=== PATIENT | male | born 1965 | race Hispanic/Latino ===

== ENCOUNTER 2022-03-24 21:28 | Emergency (ER) | payer OTHER ==
[2022-03-24] MEDS ORDERED: Morphine 4 MG/ML VIAL ONE (22:18)
[2022-03-24] MEDS ORDERED: Ondansetron PF 4 MG/2 ML Vial ONE (22:18)
[2022-03-24] MEDS ORDERED: Cefepime 2 GM VIAL ONE (22:19)
[2022-03-24 22:47] LABS: SARS-CoV-2 NAA Rapid Test Not Detected (NotDetected)
[2022-03-24 22:48] LABS: Hemoglobin 11.6 g/dL (13.5-17.5); MDiff Complete? YES; Mean Corpuscular HGB CONC 34.1 g/dL (32.0-36.0); Mean Corpuscular Hemoglobin 28.5 pg (27.0-33.0); Mean Corpuscular Volume 83.5 fl (81.2-95.1); Mean Platelet Volume 9.7 fl (7.4-10.4); Platelet Count 403 10x3/uL (150-450); Platelet Morphology Comment Appears Adequate; RBC Distribution Width 13.2 % (11.5-14.5); Red Blood Cell (RBC) Count 4.07 10x6/uL (4.32-5.72); White Blood Cell (WBC) Count 12.7 10x3/uL (3.5-10.5)
[2022-03-24 23:38] LABS: Band 1 % (5-11); Eosinophils 1 % (0-10); Lymphocytes 28 % (21-51); Metamyelocyte 2 % (0-0); Monocytes 10 % (0-10); Neutrophil 53 % (42-75); Reactive Lymphocytes 5 % (0-10)
[2022-03-24 23:51] LABS: ALT (SGPT) 18 U/L (8-55); AST (SGOT) 12 U/L (5-34); Albumin 3.3 g/dL (3.5-5.0); Alkaline Phosphatase 74 U/L (40-110); Anion Gap 14 mmol/L (10-20); BUN (Urea Nitrogen) 24 mg/dL (8.4-25.7); Bilirubin, Total 0.3 mg/dL (0.2-1.2); Calc. Creatinine Clearance 0 mL/min (70-130); Calcium 8.9 mg/dL (7.8-10.44); Carbon Dioxide 22 mmol/L (22-29); Chloride 102 mmol/L (98-107); Estimated GFR 99; Globulin 4.5 g/dL (2.4-3.5); Glucose 324 mg/dL (70-105); Potassium 3.9 mmol/L (3.5-5.1); Protein, Total 7.8 g/dL (6.0-8.3); Sodium 134 mmol/L (136-145)
[2022-03-25] MEDS ORDERED: Morphine 4 MG/ML VIAL ONE (01:29)
== END 2022-03-25 03:34 | disposition short-term general hospital (02) ==
LOC: CSHERS 21:28 → EEVIPCON 21:28 → CSHERS 03-25 03:34
DX: A41.9 Sepsis, unspecified organism (principal); M86.9 Osteomyelitis, unspecified; E78.5 Hyperlipidemia, unspecified; E10.9 Type 1 diabetes mellitus without complications; I10 Essential (primary) hypertension; Z79.899 Other long term (current) drug therapy; Z79.4 Long term (current) use of insulin
CPT/HCPCS: 36415; 36416; 80053; 83605; 85025; 87040; 87070; 87077; 87186; 87205; 93005; 96365; 96366; 96367; 96375; 96376; J0692; J2270; J2405; J3370; U0002

== ENCOUNTER 2023-05-04 10:53 | Emergency (ER) | payer OTHER ==
[2023-05-04 12:35] LABS: #Basophils 0.1 10x3/uL (0.0-0.2); #Eosinphils 0.2 10x3/uL (0.0-0.5); #Monocytes 1.1 10x3/uL (0.0-1.1); #Neutrophils 3.6 10x3/uL (1.5-8.4); %Basophils 0.9 % (0.0-2.0); %Eosinophils 3.1 % (0.0-6.0); %Lymphocytes 30.1 % (18.0-47.0); %Monocytes 14.6 % (0.0-10.0); %Neutrophils 47.6 % (40.0-75.0); Hematocrit 38.7 % (38.8-50.0); Hemoglobin 12.5 g/dL (13.5-17.5); Mean Corpuscular HGB CONC 32.3 g/dL (32.0-36.0); Mean Corpuscular Hemoglobin 26.8 pg (27.0-33.0); Platelet Count 368 10x3/uL (150-450); Red Blood Cell (RBC) Count 4.66 10x6/uL (4.32-5.72); White Blood Cell (WBC) Count 7.5 10x3/uL (3.5-10.5)
[2023-05-04] MEDS ORDERED: Ampicillin/Sulbactam 3 GM in Sodium Chloride 0.9% 100 ML IVPB SCH ×2 (12:45→19:45)
[2023-05-04] MEDS ORDERED: VANCOMYCIN 2 GRAM/400 ML BAG 2 GM in Premix Bag 1 BAG IVPB SCH (12:45)
[2023-05-04 12:50] LABS: ALT (SGPT) 30 U/L (8-55); AST (SGOT) 25 U/L (5-34); Albumin 3.6 g/dL (3.5-5.0); Alkaline Phosphatase 110 U/L (40-110); Anion Gap 14 mmol/L (10-20); BUN (Urea Nitrogen) 10 mg/dL (8.4-25.7); Bilirubin, Total 0.5 mg/dL (0.2-1.2); Calc. Creatinine Clearance 0 mL/min (70-130); Calcium 8.8 mg/dL (7.8-10.44); Carbon Dioxide 24 mmol/L (22-29); Chloride 104 mmol/L (98-107); Estimated GFR 102; Globulin 3.8 g/dL (2.4-3.5); Glucose 93 mg/dL (70-105); Potassium 4.3 mmol/L (3.5-5.1); Protein, Total 7.4 g/dL (6.0-8.3); Sodium 138 mmol/L (136-145)
[2023-05-05] MEDS ORDERED: Ampicillin/Sulbactam 3 GM in Sodium Chloride 0.9% 100 ML IVPB SCH (01:00)
[2023-05-05] MEDS ORDERED: Vancomycin 1 GM VIAL ONE (09:48)
[2023-05-05] MEDS ORDERED: metFORMIN 500 MG TAB ONE (10:59)
[2023-05-05] MEDS ORDERED: Aspirin 81 mg Enteric Coated Tablet ONE (10:59)
[2023-05-05] MEDS ORDERED: Lisinopril 20 MG TAB PO SCH (11:00)
[2023-05-05] MEDS ORDERED: Insulin NPH Human Isophane 100 UNITS/ML (10 ML VIAL) SC SCH (12:00)
[2023-05-05] MEDS ORDERED: Piperacillin/Tazobactam 4.5 GM VIAL ONE (12:31)
[2023-05-06] MEDS ORDERED: Lisinopril 20 MG TAB PO SCH (10:15)
== END 2023-05-06 20:24 | disposition short-term general hospital (02) ==
LOC: CSHERS 10:53 → EEVIPCON 10:53 → CSHERS 05-06 20:24
DX: E11.69 Type 2 diabetes mellitus with other specified complication (principal); M86.9 Osteomyelitis, unspecified; I10 Essential (primary) hypertension; E78.00 Pure hypercholesterolemia, unspecified; Z79.84 Long term (current) use of oral hypoglycemic drugs; Z79.899 Other long term (current) drug therapy; Z79.4 Long term (current) use of insulin; Z79.82 Long term (current) use of aspirin; Z87.891 Personal history of nicotine dependence
CPT/HCPCS: 36415; 36416; 80053; 83605; 85025; 86140; 96365; 96366; 96367; 96375; 96376; J0295; J1815; J2543; J3370; J3490